=== PATIENT | male | born 1980 | race Caucasian/White ===

== ENCOUNTER 2023-06-04 16:32 | Emergency (ER) | payer BC, OTHER ==
[2023-06-04] MEDS ORDERED: Lidocaine 2% 20 ML MDV INFILT ONE (16:33)
[2023-06-04] MEDS ORDERED: Diphtheria,Pertussis(Acell),Tetanus Vaccine 0.5 ML Syringe IM ONE (16:52)
== END 2023-06-04 17:20 | disposition home or self-care (01) ==
LOC: FB.ED 16:32
DX: S61.412A Laceration without foreign body of left hand, initial encounter (principal); Z23 Encounter for immunization; W26.0XXA Contact with knife, initial encounter
CPT/HCPCS: 12001; 90471; 90715; 99282; 99283-25

== ENCOUNTER 2024-08-30 23:05 | Emergency (ER) | payer OTHER | END 2024-08-30 23:26 | disposition home or self-care (01) | LOC: FB.ED 23:05 | DX: F10.129 Alcohol abuse with intoxication, unspecified (principal); Y90.9 Presence of alcohol in blood, level not specified | CPT/HCPCS: 99283; 99284 ==

== ENCOUNTER 2024-09-01 13:02 | Emergency (ER) | payer OTHER ==
[2024-09-01] MEDS: Acetaminophen 500 MG Tab PO ONE (15:00)
== END 2024-09-01 15:23 ==
LOC: FB.ED 13:02
DX: S60.031A Contusion of right middle finger without damage to nail, initial encounter (principal); S60.041A Contusion of right ring finger without damage to nail, initial encounter; S60.051A Contusion of right little finger without damage to nail, initial encounter; X58.XXXA Exposure to other specified factors, initial encounter
CPT/HCPCS: 73130; 99283; A9270